=== PATIENT | female | born 1995 | race Caucasian/White ===

== ENCOUNTER 2016-09-04 08:47 | Emergency (ER) | payer OTHER, MEDICAID ==
[~2016-09-04] VITALS: Ht 160 cm; Wt 55.0 kg
--- NOTE | 2016-09-04 09:02 | PD ---
HPI Chief Complaint: psychiatric symptoms Time Seen by Provider: 09:02 Travel History International Travel<30 days: No Contact w/Intl Traveler<30days: No History of Present Illness HPI 20-year-old female presents to the emergency department under the Muhammad act via police for reported suicidal ideations. Suicidal ideations were reported by the patient's boyfriend and mother stated that she was suicidal and wanted to kill herself with a gun. No gun was found on the premises of the home. Patient is here for psychiatric evaluation. Patient denies any medical issues. She takes no medications. She is allergic to penicillin. [facility] Past Medical History Seizures: Yes Social History Alcohol Use: Yes Tobacco Use: Yes (12ppd) Substance Use: No Allergies-Medications (Allergen,Severity, Reaction): Coded Allergies: Penicillin (Verified Allergy, Severe, 03/05/16) Reported Meds & Prescriptions Reported Meds & Active Scripts Active No Active Prescriptions or Reported Medications Review of Systems Except as stated in HPI: all other systems reviewed are Neg General / Constitutional: No: Fever Eyes: No: Visual changes HENT: No: Headaches Cardiovascular: No: Chest Pain or Discomfort Respiratory: No: Shortness of Breath Gastrointestinal: No: Abdominal Pain Genitourinary: No: Dysuria Musculoskeletal: No: Pain Skin: No Rash Neurologic: No: Weakness Psychiatric: No: Depression Endocrine: No: Polydipsia Hematologic/Lymphatic: No: Easy Bruising Physical Exam Narrative GENERAL: Patient appears in no acute distress. SKIN: Warm and dry. Normal color. Normal turgor. No signs of trauma. HEAD: Atraumatic. Normocephalic. EYES: Pupils equal and round. No scleral icterus. No injection or drainage. ENT: No nasal bleeding or discharge. Mucous membranes pink and moist. NECK: Trachea midline. No JVD. CARDIOVASCULAR: Regular rate and rhythm. RESPIRATORY: No accessory muscle use. Clear to auscultation. Breath sounds equal bilaterally. MUSCULOSKELETAL: Extremities without clubbing, cyanosis, or edema. No obvious deformities. NEUROLOGICAL: Awake and alert. No obvious cranial nerve deficits. Motor grossly within normal limits. Five out of 5 muscle strength in the arms and legs. Normal speech. PSYCHIATRIC: Appropriate mood and affect; insight and judgment normal. Data Data Last Documented VS Vital Signs Date Time Temp Pulse Resp B/P Pulse Ox O2 Delivery O2 Flow Rate FiO2 09/04/16 09:17 88 18 09/04/16 09:04 98.6 125/75 97 Orders Complete Blood Count With Diff (09/04/16 09:03) Comprehensive Metabolic Panel (09/04/16 09:03) Psych Screen (09/04/16 09:03) Drug Screen, Random Urine (09/04/16 09:03) Ed Urine Pregnancytest Poc (09/04/16 09:06) Lorazepam (Ativan) (09/04/16 09:30) Acetaminophen (Tylenol) (09/04/16 09:30) Labs Laboratory Tests Test 09/04/16 09/04/16 09:14 09:32 White Blood Count 6.9 TH/MM3 Red Blood Count 4.25 MIL/MM3 Hemoglobin 13.5 GM/DL Hematocrit 38.6 % Mean Corpuscular Volume 90.8 FL Mean Corpuscular Hemoglobin 31.7 PG Mean Corpuscular Hemoglobin 35.0 % Concent Red Cell Distribution Width 12.6 % Platelet Count 230 TH/MM3 Mean Platelet Volume 7.7 FL Neutrophils (%) (Auto) 53.8 % Lymphocytes (%) (Auto) 37.3 % Monocytes (%) (Auto) 8.4 % Eosinophils (%) (Auto) 0.2 % Basophils (%) (Auto) 0.3 % Neutrophils # (Auto) 3.7 TH/MM3 Lymphocytes # (Auto) 2.6 TH/MM3 Monocytes # (Auto) 0.6 TH/MM3 Eosinophils # (Auto) 0.0 TH/MM3 Basophils # (Auto) 0.0 TH/MM3 CBC Comment DIFF FINAL Differential Comment Sodium Level 144 MEQ/L Potassium Level 3.3 MEQ/L Chloride Level 111 MEQ/L Carbon Dioxide Level 24.5 MEQ/L Anion Gap 9 MEQ/L Blood Urea Nitrogen 5 MG/DL Creatinine 0.66 MG/DL Estimat Glomerular Filtration 114 ML/MIN Rate Random Glucose 97 MG/DL Calcium Level 8.9 MG/DL Total Bilirubin 0.4 MG/DL Aspartate Amino Transf 14 U/L (AST/SGOT) Alanine Aminotransferase 19 U/L (ALT/SGPT) Alkaline Phosphatase 57 U/L Total Protein 7.7 GM/DL Albumin 4.3 GM/DL Urine Opiates Screen NEG Urine Barbiturates Screen NEG Urine Amphetamines Screen NEG Urine Benzodiazepines Screen NEG Urine Cocaine Screen POS Urine Cannabinoids Screen NEG MDM Medical Decision Making Medical Screen Exam Complete: Yes Emergency Medical Condition: Yes Differential Diagnosis Muhammad act. Suicidal ideation. Medical clearance for psychiatric evaluation. Narrative Course Patient is medically stable at time of exam. Psychiatric labs are ordered per protocol including urine test. Patient is cleared medically for psychiatric evaluation. Diagnosis Primary Impression: Medical clearance for psychiatric admission Scripts No Active Prescriptions or Reported Meds Condition: Stable Moses Thompson Sep 04, 2016 09:02
[2016-09-04 09:04] VITALS: BP 125/75; PULSE 88; RESP 18; TEMP 98.6; O2SAT 97
[2016-09-04 09:29] LABS: AUTOMATED NEUTROPHIL # 3.7 TH/MM3 (1.8-7.7); BASOPHIL % 0.3 % (0.0-2.0); EOSINOPHIL % 0.2 % (0.0-4.0); HEMATOCRIT 38.6 % (35.0-46.0); HEMO FLAGS DIFF FINAL; LYMPH % 37.3 % (9.0-44.0); LYMPHOCYTE # 2.6 TH/MM3 (1.0-4.8); MEAN CELL VOLUME 90.8 FL (80.0-100.0); MEAN CORPUSCULAR HEMOGLOBIN 31.7 PG (27.0-34.0); MONO % 8.4 % (0.0-8.0); NEUT % 53.8 % (16.0-70.0); PLATELET COUNT 230 TH/MM3 (150-450); RED BLOOD COUNT 4.25 MIL/MM3 (4.00-5.30); RED CELL DISTRIBUTION WIDTH 12.6 % (11.6-17.2); WHITE BLOOD COUNT 6.9 TH/MM3 (4.0-11.0)
[2016-09-04] MEDS ORDERED: LORazepam 0.5 MG TAB PO ONE ×2 (09:30→16:30)
[2016-09-04] MEDS ORDERED: ACETAMINOPHEN 325 MG TAB PO ONE (09:30)
[2016-09-04 09:49] LABS: ANION GAP 9 MEQ/L (5-15); AST (GOT) 14 U/L (16-38); BICARBONATE 24.5 MEQ/L (21.0-32.0); BLOOD UREA NITROGEN 5 MG/DL (7-18); CHLORIDE 111 MEQ/L (98-107); GLOMERULAR FILTRATION RATE 114 ML/MIN (>89); POTASSIUM 3.3 MEQ/L (3.5-5.1); SODIUM (NA) 144 MEQ/L (136-145)
[2016-09-04 09:50] LABS: ALT (GPT) 19 U/L (9-42)
[2016-09-04 09:52] LABS: ALKALINE PHOSPHATASE 57 U/L (45-117); TOTAL BILIRUBIN ADULT 0.4 MG/DL (0.2-1.0)
[2016-09-04 10:03] LABS: AMPHETAMINE, URINE NEG (NEG); BARBITURATES, URINE NEG (NEG); COCAINE, URINE POS (NEG)
[2016-09-04] MEDS ORDERED: IBUPROFEN 800 MG TAB PO ONE (14:45)
[2016-09-04] MEDS ORDERED: LORazepam 1 MG TAB PO ONE (15:00)
[2016-09-04 16:54] VITALS: BP 118/70; PULSE 82; RESP 18; O2SAT 100
[2016-09-05 02:27] VITALS: BP_SYST 91; PULSE 68; RESP 16; TEMP 98.1; O2SAT 98
[2016-09-05 06:38] VITALS: BP 96/54; PULSE 80; RESP 16; TEMP 98; O2SAT 98
[2016-09-05 06:40] VITALS: BP 103/69; PULSE 79; RESP 16; TEMP 97.8; O2SAT 98
[2016-09-05 06:49] VITALS: BP 103/69; PULSE 79; RESP 16; TEMP 97.8; O2SAT 98
[2016-09-05 10:27] VITALS: BP 109/55; PULSE 80; RESP 18; O2SAT 100
[2016-09-05 10:28] VITALS: BP 109/55; PULSE 80; RESP 18; O2SAT 100
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
== END 2016-09-05 12:25 | disposition home or self-care (01) ==
LOC: NEPD 08:47 → NEPJ 09-05 12:25
DX: F43.21 Adjustment disorder with depressed mood (principal); F14.90 Cocaine use, unspecified, uncomplicated
CPT/HCPCS: 80053; 80307; 84703; 85025; 99284

== ENCOUNTER → 2017-04-26 | Outpatient (CLI) | payer MEDICAID, OTHER ==
[2017-04-26 15:03] LABS: AUTOMATED NEUTROPHIL # 5.2 TH/MM3 (1.8-7.7); BASOPHIL % 0.2 % (0.0-2.0); EOSINOPHIL % 0.1 % (0.0-4.0); HEMATOCRIT 36.5 % (35.0-46.0); HEMOGLOBIN 12.9 GM/DL (11.6-15.3); LYMPH % 16.8 % (9.0-44.0); LYMPHOCYTE # 1.1 TH/MM3 (1.0-4.8); MEAN CELL VOLUME 92.1 FL (80.0-100.0); MEAN CORPUSCULAR HEMOGLOBIN 32.6 PG (27.0-34.0); MEAN CORPUSCULAR HGB CONC 35.3 % (32.0-36.0); MONO % 6.5 % (0.0-8.0); MONOCYTE # 0.4 TH/MM3 (0-0.9); NEUT % 76.4 % (16.0-70.0); PLATELET COUNT 213 TH/MM3 (150-450); RED BLOOD COUNT 3.96 MIL/MM3 (4.00-5.30); RED CELL DISTRIBUTION WIDTH 12.6 % (11.6-17.2); WHITE BLOOD COUNT 6.8 TH/MM3 (4.0-11.0)
[2017-04-27 10:05] LABS: HEPATITIS B SURFACE ANTIGEN NEGATIVE (NEGATIVE)
== END ==
LOC: ELAB 11:32
PROVIDERS: ATTEND Advanced Practice Midwife
DX: Z33.1 Pregnant state, incidental (principal)
CPT/HCPCS: 36415; 84443; 85025; 86592; 86703; 86762; 86787; 86850; 86900; 86901; 87340

== ENCOUNTER → 2017-06-14 | Outpatient (CLI) | payer MEDICAID | LOC: HPND 10:39 | PROVIDERS: ATTEND Obstetrics & Gynecology | DX: O99.352 Diseases of the nervous system complicating pregnancy, second trimester (principal) | CPT/HCPCS: 76805 ==

== ENCOUNTER 2017-11-09 07:48 | Inpatient (IN) ==
[2017-11-09] MEDS ORDERED: Oxytocin 30 Units/500ml Premix 30 UNITS/500 ML BAG IV.SIG ONE (08:05)
[2017-11-09] MEDS ORDERED: Naloxone Inj 0.4 MG/ML Vial IV.PUSH PRN ×2 (08:05→15:49)
[2017-11-09] MEDS ORDERED: Sod Chloride 0.9% Inj 1,000 ML IV.CONT PRN (08:05)
[2017-11-09] MEDS ORDERED: fentaNYL Citrate Inj 100 MCG/2 ML Ampul IV.PUSH PRN ×2 (08:05)
[2017-11-09] MEDS ORDERED: Sodium Chlor 0.9% Inj 500 ML IV.SIG PRN (08:05)
[2017-11-09] MEDS ORDERED: Citric Acid/Sodium Citrate Liq 30 ML UDC PO SCH (08:15)
--- NOTE | 2017-11-09 08:15 | P.HPOB ---
History of Present Illness Primary Care Physician: MD Kassi Lee Chief Complaint: Water broke and contractions started History of Present Illness: Patient is 22-year-old white female at 39-1/2 weeks who seen Kassi Snyder for care and presents today with spontaneous rupture membranes and early labor. Patient denies bleeding. heart rate is reactive and she is jn regularly and it examined OB ED she is grossly ruptured membranes Weeks Gestation:: 39 Para: 0 : 1 Review of Systems Constitutional: Denies anorexia, Denies body ache(s), Denies chills, Denies daytime sleepiness, Denies excessive sweating, Denies fatigue, Denies fever(s), Denies headache(s), Denies increased appetite, Denies lack of energy, Denies malaise, Denies night sweats, Denies weakness, Denies weight gain, Denies weight loss, Denies other Cardiovascular: Denies bluish discoloration of hand/feet, Denies chest pain, Denies chest pain at rest, Denies chest pain with activity, Denies excessive sweating, Denies fainting, Denies fast heart rate, Denies foot swelling, Denies generalized swelling, Denies irregular heart rhythm, Denies leg pain with activity, Denies leg sores, Denies leg swelling, Denies lightheadedness, Denies radiating jaw, neck or arm pain, Denies rapid, pounding, or irregular heartbeat , Denies shortness of breath, Denies shortness of breath with activity, Denies shortness of breath when lying down, Denies shortness of breath causing sudden awakening, Denies slow heart rate, Denies other Respiratory: Denies change in phlegm color, Denies chest congestion, Denies cough, Denies coughing up blood, Denies excessive phlegm production, Denies pain on inspiration, Denies pain with cough, Denies shortness of breath, Denies shortness of breath with activity, Denies snoring, Denies stridor, Denies wheezing, Denies other Gastrointestinal: Reports abdominal pain, Denies belching, Denies black, tarry stools, Denies bloating, Denies bright, red blood in stools, Denies change in bowel habits, Denies constant urge to pass stool, Denies change in stools, Denies coffee ground vomit, Denies constipation, Denies cramping, Denies difficulty swallowing, Denies excessive passing of gas, Denies feeling full early, Denies heartburn, Denies incontinent of stools, Denies loose stools, Denies nausea, Denies pain with swallowing, Denies vomiting, Denies vomiting blood, Denies other Genitourinary: Reports vaginal discharge, Denies abnormal periods, Denies abnormal vaginal bleeding, Denies absent period, Denies bleeding between periods , Denies blood in urine, Denies difficulty starting urination, Denies difficulty urinating, Denies dribbling after urination, Denies frequent nighttime urination, Denies genital itching, Denies genital lesions, Denies heavy periods, Denies hot flashes, Denies light periods, Denies nipple discharge , Denies painful intercourse, Denies painful periods, Denies painful urination, Denies pelvic pain, Denies prolapse symptoms, Denies sexual problems, Denies side pain, Denies urinary incontinence, Denies urinary urgency, Denies vaginal dryness, Denies vaginal odor, Denies vaginal itching, Denies other Neurologic: Denies abnormal hearing, Denies abnormal movements, Denies abnormal speech, Denies abnormal walking, Denies behavioral changes, Denies burning sensations, Denies confusion, Denies dizziness, Denies fainting, Denies frequent falls, Denies headache(s), Denies lack of coordination, Denies localized weakness, Denies loss of vision, Denies memory loss, Denies numbness, Denies other visual disturbances, Denies radiating pain, Denies restless legs, Denies convulsions, Denies seizure-like activity, Denies sensory deficit, Denies tingling, Denies tingling/numbness/burning sensations, Denies tremor(s), Denies unsteadiness, Denies weakness, Denies other PMFSH - History History Provided By: Patient - Medical History Medical History: Medical History (Last Updated 10/27/17 @ 07:28 by Shell Matthews) History of epilepsy No significant past surgical history - Tobacco History Second Hand Smoke Exposure: No Smoking Status: Never smoker - Alcohol History How Often Do You Have a Drink Containing Alcohol: Never - Substance Use History Substance History: No History of Abuse - Travel History History of Recent Travel: No Recent Travel in the [facility] Within the Last 8 Weeks: No Recent Travel Out of the Country Within the Last 8 Weeks: No Medications and Allergies Active Medications: Active Medications Citric Acid/Sodium Citrate (Sodium Citrate/Citric Acid Liq) 30 ml PO [employer]INT[employer] MACHIN[employer] [facility] Stop: 11/13/17 08:14 Fentanyl Citrate (Fentanyl Inj) 50 mcg IV.PUSH Q1H PRN PRN Reason: Pain Scale 3 - 5 Fentanyl Citrate (Fentanyl Inj) 100 mcg IV.PUSH Q1H PRN PRN Reason: PAIN SCALE 6 TO 10 Clindamycin/Sodium Chloride (Cleocin 900 Mg/Ns Premix) 900 mg in 50 mls @ 100 mls/hr IV.SIG Q8H [place] Lactated Ringer's (Lr 1000 Ml Inj) 1,000 mls @ 3,000 mls/hr IV.SIG UNSCH PRN PRN Reason: compromise or epidural Sodium Chloride (Ns Inj) 500 mls @ 1,000 mls/hr IV.SIG UNSCH PRN PRN Reason: SEE LABEL COMMENTS Sodium Chloride (Ns Inj) 1,000 mls @ 100 mls/hr IV.CONT .Q10H PRN PRN Reason: SEE LABEL COMMENTS Oxytocin (Pitocin 30 Units/Ns 500 Ml Premix) 30 units in 500 mls @ 999 mls/hr IV.SIG BOLUS ONE Stop: 11/09/17 08:35 Lactated Ringer's (Lr 1000 Ml Inj) 1,000 mls @ 125 mls/hr IV.CONT .Q8H [facility] Lidocaine HCl (Xylocaine 1% Inj) 0.1 ml I-DERMAL PRN PRN PRN Reason: For IV start Stop: 11/12/17 08:04 Lidocaine HCl (Xylocaine 1% Inj) 10 ml INFILTRATN PRN PRN PRN Reason: For episiotomy repair Stop: 11/11/17 08:04 Mineral Oil (Muri-Lube Oil) 10 ml TOPICAL PRN PRN PRN Reason: PRN perineal massage Naloxone HCl (Narcan Inj) 0.1 mg IV.PUSH Q2M PRN PRN Reason: for opiate reversal Ondansetron HCl (Zofran Inj) 4 mg IV.PUSH Q6H PRN PRN Reason: NAUSEA OR VOMITING Allergies Allergy/AdvReac Type Severity Reaction Status Date / Time penicillin G Allergy Severe Hives Verified 10/27/17 07:26 Home Medications Medication Instructions Recorded Confirmed Type No Known Home Medications 10/27/17 10/27/17 History Exam - Constitutional moderate distress - Routine HEENT Exam Head: Present: normocephalic, atraumatic Eye: Present: PERRL - Routine Respiratory Exam Present: CTA bilaterally - Routine Cardiovascular Exam Present: RRR - Routine Abdominal Exam Present: soft - Routine Exam Comments: Cervix is 3 cm/90/-1/cephalic with gross leakage of amniotic fluid on exam - Routine Neurological Exam Present: alert, oriented X3, CN II-XII intact Results - Labs Group B Strep: Positive Caprini VTE Risk Assessment Caprini VTE Risk Assessment: No/Low Risk (score <= 1) Caprini Risk Assessment Model: Point Value = 1 Point Value = 2 Point Value = 3 Point Value = 5 Age 41-60 Minor surgery BMI > 25 kg/m2 Swollen legs Varicose veins or History of unexplained or recurrent spontaneous Oral contraceptives or hormone replacement Sepsis (< 1 month) Serious lung disease, including pneumonia (< 1 month) Abnormal pulmonary function Acute myocardial infarction Congestive heart failure (< 1 month) History of inflammatory bowel disease Medical patient at bed rest Age 61-74 Arthroscopic surgery Major open surgery (> 45 min) Laparoscopic surgery (> 45 min) Malignancy Confined to bed (> 72 hours) Immobilizing plaster cast Central venous access Age >= 75 History of VTE Family history of VTE Factor V Leiden Prothrombin [id number] Lupus anticoagulant Anticardiolipin antibodies Elevated serum homocysteine Heparin-induced thrombocytopenia Other congenital or acquired thrombophilia Stroke (< 1 month) Elective arthroplasty Hip, pelvis, or leg fracture Acute spinal cord injury (< 1 month) Prophylaxis Regimen: Total Risk Factor Score Risk Level Prophylaxis Regimen 0-1 Low Early ambulation 2 Moderate Order ONE of the following: *Sequential Compression Device (SCD) *Heparin 5000 units SQ BID 3-4 Higher Order ONE of the following medications: *Heparin 5000 units SQ TID *Enoxaparin/Lovenox 40 mg SQ daily (WT < 150 kg, CrCl > 30 mL/min) *Enoxaparin/Lovenox 30 mg SQ daily (WT < 150 kg, CrCl > 10-29 mL/min) *Enoxaparin/Lovenox 30 mg SQ BID (WT < 150 kg, CrCl > 30 mL/min) AND/OR *Sequential Compression Device (SCD) 5 or more Highest Order ONE of the following medications: *Heparin 5000 units SQ TID (Preferred with Epidurals) *Enoxaparin/Lovenox 40 mg SQ daily (WT < 150 kg, CrCl > 30 mL/min) *Enoxaparin/Lovenox 30 mg SQ daily (WT < 150 kg, CrCl > 10-29 mL/min) *Enoxaparin/Lovenox 30 mg SQ BID (WT < 150 kg, CrCl > 30 mL/min) AND *Sequential Compression Device (SCD) Assessment and Plan - Diagnosis (1) Amniotic fluid leaking Code(s): O42.90 - Premature rupture of membranes, unspecified as to length of time between rupture and onset of labor, unspecified weeks of gestation Status : Acute (2) Uterine contractions during Code(s): O62.2 - Other uterine inertia Status: Acute (3) 39 weeks gestation of Code(s): Z3A.39 - 39 weeks gestation of Status: Acute - Plan This primiparous patients at 39 weeks with grossly ruptured membranes in early labor, cervix is 3/90/-1/cephalic. Plan for her to be admitted labor and delivery, augment labor as needed, epidural anesthesia, GBS prophylaxis antibiotics and anticipate vaginal delivery today
[2017-11-09] MEDS ORDERED: fentaNYL 2MCG-Bupiv 0.125% Epi 150 ML EPIDURAL ONE (08:51)
[2017-11-09] MEDS ORDERED: Clindamycin 900 mg/NS Premix 900 MG/50 ML PIGGYBACK IV.SIG SCH ×2 (09:00→10:06)
[2017-11-09 09:06] LABS: Baso % (Auto) 0.4 % (0.0-2.0); Eos # (Auto) 0.1 th/mm3 (0.0-0.4); Eos % (Auto) 0.6 % (0.0-4.0); Hematocrit 34.2 % (35.0-46.0); Hemoglobin 11.7 gm/dL (11.6-15.3); Lymph % (Auto) 19.5 % (9.0-44.0); Mean Corpuscular HGB Conc 34.2 % (32.0-36.0); Mean Corpuscular Hemoglobin 31.6 pg (27.0-34.0); Mean Corpuscular Volume 92.5 fL (80.0-100.0); Mean Platelet Volume 8.5 fL (7.0-11.0); Mono # (Auto) 1.1 th/mm3 (0.0-0.9); Neut # (Auto) 6.9 th/mm3 (1.8-7.7); Neut % (Auto) 68.5 % (16.0-70.0); Platelet Count 184 th/mm3 (150-450); Red Cell Distribution Width 13.1 % (11.6-17.2)
[2017-11-09 09:44] LABS: Eosinophils 1 % (0-4); Lymphocytes 15 % (9-44); Monocytes 4 % (0-8); Myelocytes 2 % (0-0); Platelet Estimate Normal (Normal); Platelet Morphology Normal (Normal)
[2017-11-09 09:45] LABS: RBC Morphology Normal (Normal)
[2017-11-09] MEDS ORDERED: Lidocaaine 1.5%/Epinephrine 1:200,000 PF Inj 5 ML Amp ONE (09:55)
[2017-11-09] MEDS ORDERED: Lidocaine PF 1% Inj 5 ML Vial ONE (09:56)
[2017-11-09] MEDS ORDERED: Oxytocin 30 Units/500ml Premix 30 UNITS/500 ML BAG IV.SIG PRN (10:41)
--- NOTE | 2017-11-09 10:54 | P.OBLABOR ---
Subjective Interval history: Patient seen at bedside s/p epidural. Doing well. Resting Comfortably. Not feeling contractions currently but some pressure in the pelvic area. Objective Vital Signs: Vital Signs - 8 hr 11/09/17 08:35 11/09/17 09:06 11/09/17 09:15 Temperature 98.5 F Pulse Rate 81 88 98 H Respiratory Rate 20 Blood Pressure 119/62 132/86 11/09/17 09:46 11/09/17 09:55 11/09/17 10:00 Temperature Pulse Rate 109 H 88 85 Respiratory Rate Blood Pressure 122/77 121/77 116/73 11/09/17 10:02 11/09/17 10:06 11/09/17 10:09 Temperature Pulse Rate 80 87 Respiratory Rate 18 Blood Pressure 114/75 120/73 11/09/17 10:15 11/09/17 10:18 11/09/17 10:25 Temperature Pulse Rate 111 H 93 H Respiratory Rate Blood Pressure 126/76 140/79 109/67 11/09/17 10:27 Temperature Pulse Rate 119 H Respiratory Rate Blood Pressure 100/81 Objective: Pelvic Exam per nursing: Cervix: posterior Dilatation: 4cm Effacement: [90%] Station: [-1] Presentation: cephalic Membranes: ruptured Uterine Contractions: q5 mins FHT's: Category: 1 Baseline: 135 bmp Reactive: yes Variability: moderate Decels: no Assessment and Plan - Plan 22 year old female who presents at 39 weeks with +SROM in early labor. No complications with this . heart tracings category 1 reassuring. GBS positive. -epidural anesthesia given. -Cervical check 4cm/90/-1 per nursing. -contractions every 5 minutes. -EFM/[place] -Administer oxytocin 2-2-30. At 2 units. -GBS prophylaxis antibiotics q 4.
[2017-11-09] MEDS ORDERED: fentaNYL 2MCG-Bupiv 0.125% Epi 150 ML EPIDURAL PRN (11:38)
[2017-11-09] MEDS ORDERED: fentaNYL Citrate Inj 100 MCG/2 ML Ampul EPIDURAL ONE (11:38)
[2017-11-09 11:45] LABS: Amphetamine Urine With Conf Neg (Neg); Benzodiazepine Urine With Conf Neg (Neg)
[2017-11-09 11:49] LABS: Bacteria,Urine Rare /hpf; Bilirubin,Urine Negative (Negative); Clarity,Urine Clear (Clear); Color,Urine Yellow (Yellw/Straw); Glucose,Urine (UA) Negative (Negative); Leukocyte Esterase,Urine Negative (Negative); Mucus,Urine Few /lpf (Occasional); Nitrite,Urine Negative (Negative); Specific Gravity,Urine 1.014 (1.002-1.035)
[2017-11-09] MEDS ORDERED: Lidocaine PF 1% Inj 10 ML Amp ONE (13:22)
[2017-11-09] MEDS ORDERED: fentaNYL Citrate Inj 100 MCG/2 ML Ampul ONE (13:22)
--- NOTE | 2017-11-09 14:38 | P.OBLABOR ---
Subjective Interval history: Patient seen at bedside. Feels nauseous. Otherwise not feeling contractions. Denies any pain. Shivering but denies feeling cold. Objective Vital Signs: Vital Signs - 8 hr 11/09/17 08:35 11/09/17 09:06 11/09/17 09:15 Temperature 98.5 F Pulse Rate 81 88 98 H Respiratory Rate 20 Blood Pressure 119/62 132/86 11/09/17 09:46 11/09/17 09:55 11/09/17 10:00 Temperature Pulse Rate 109 H 88 85 Respiratory Rate Blood Pressure 122/77 121/77 116/73 11/09/17 10:02 11/09/17 10:06 11/09/17 10:09 Temperature Pulse Rate 80 87 Respiratory Rate 18 Blood Pressure 114/75 120/73 11/09/17 10:15 11/09/17 10:18 11/09/17 10:25 Temperature Pulse Rate 111 H 93 H Respiratory Rate Blood Pressure 126/76 140/79 109/67 11/09/17 10:27 11/09/17 10:40 11/09/17 10:50 Temperature Pulse Rate 119 H 92 H 95 H Respiratory Rate Blood Pressure 100/81 105/66 114/73 11/09/17 11:20 11/09/17 12:00 11/09/17 12:15 Temperature Pulse Rate 85 95 H 88 Respiratory Rate Blood Pressure 106/62 94/57 L 102/68 11/09/17 12:25 11/09/17 13:11 11/09/17 13:30 Temperature 98.7 F Pulse Rate 103 H 96 H Respiratory Rate 18 Blood Pressure 116/77 Objective: Pelvic Exam: Cervix: anterior Dilatation: 10 Effacement: 100 Station: 1 Presentation: cephalic Membranes: ruptured Contractions: q 2 mins FHT's: Category: 2 Baseline: 140s Reactive: yes Variability: moderate Decels: variable and late Assessment and Plan - Plan 22 year old female who presents at 39 weeks with +SROM in early labor. No complications with this . heart tracings category 2. GBS positive. -epidural anesthesia given. -Cervical check 10/100/+1 -contractions every 2 minutes. -Administer oxytocin 2-2-30. Increased from 2 to 7 units. -GBS prophylaxis antibiotics q 4. -Anticipate Labor in a couple hours.
[2017-11-09] MEDS ORDERED: Bisacodyl 10 MG Supp RECTAL PRN (15:49)
[2017-11-09] MEDS ORDERED: Witch Hazel 50%/Glyderin 12.5% 40 Pad Jar RECTAL PRN (15:49)
[2017-11-09] MEDS ORDERED: Zolpidem Tartrate 5 MG Tablet PO PRN (15:49)
[2017-11-09] MEDS ORDERED: Benzocaine 20% Top Spray 60 ML Can TOPICAL PRN (15:49)
[2017-11-09] MEDS ORDERED: Oxytocin 30 Units/500ml Premix 30 UNITS/500 ML BAG IV.CONT PRN (15:49)
[2017-11-09 15:53] LABS: Cord Arterial Blood HCO3 23.9
--- NOTE | 2017-11-09 15:54 | P.OBDELI ---
Weeks Gestation: 39 Artificial Rupture of Membrane: No Anesthesia: None Episiotomy: none Vaginal Delivery: Normal Presentation: Occiput anterior Nuchal Cord: None Delayed Cord Clamping (45 sec): Yes Shoulder Dystocia: Suprapubic pressure given, Kosta maneuver done (A shoulder dystocia was identified and the clock was started. McRobert's and suprapubic were given and the mother was asked to stop pushing during this time. With gentle traction, the anterior (L) shoulder was delivered atraumatically. Total time was 40 seconds. ) Placenta: Spontaneous delivery Laceration: Vaginal (b/l labials repaired with 2 runs of 4-0 vicryl each. ) Repair: Vicryl running Estimated blood loss (mL): 200 : Male Infant Male A Delivery Date: 11/09/17 Delivery Time: 15:32 Weight: 4385 kg score (1 min): 8 (infant on maternal chest) score (5 min): 7 (4 minutes of CPAP administered starting at 4 minutes)
[2017-11-09] MEDS ORDERED: Diphtheria/Tetanus/Pertussis Vaccine Inj 0.5 ML Syringe IM ONE (16:00)
[2017-11-09] MEDS ORDERED: Measles/Mumps/Rubella Vaccine Inj 0.5 ML Vial SQ ONE (16:00)
[2017-11-09] MEDS: Acetaminophen 325 MG Tablet PO PRN (18:14)
[2017-11-10] MEDS: Senna/Docusate Sodium 8.6/50 MG Tablet PO SCH ×2 (07:59→23:19)
[2017-11-10] MEDS: Acetaminophen 325 MG Tablet PO PRN ×4 (07:59→23:14)
--- NOTE | 2017-11-10 08:55 | P.PNOB ---
Subjective Interval history: Patient seen and examined at bedside this morning. She is a 22 year-old delivered at 39 weeks and 0 days. Patient is day 1 after . AFVSS. Patient's pain is complaining of back pain this morning that feels like menstrual cramps, has only received one dose of Moltrin overnight. Patient reports eating and drinking without any nausea or vomiting. Patient reports minimal bleeding. Patient has not passed gas and has had no bowel movements. Patient is walking without lower extremity pain or shortness of breath. Patient reports desire for contraception (OCPS) and is breast-feeding. Objective Vital Signs/I&O: Vital Signs 11/09/17 09:06 11/09/17 09:15 11/09/17 09:46 Temperature 98.5 F Pulse Rate 88 98 H 109 H Respiratory Rate 20 Blood Pressure 119/62 132/86 122/77 11/09/17 09:55 11/09/17 10:00 11/09/17 10:02 Temperature Pulse Rate 88 85 Respiratory Rate 18 Blood Pressure 121/77 116/73 11/09/17 10:06 11/09/17 10:09 11/09/17 10:15 Temperature Pulse Rate 80 87 111 H Respiratory Rate Blood Pressure 114/75 120/73 126/76 11/09/17 10:18 11/09/17 10:25 11/09/17 10:27 Temperature Pulse Rate 93 H 119 H Respiratory Rate Blood Pressure 140/79 109/67 100/81 11/09/17 10:40 11/09/17 10:50 11/09/17 11:20 Temperature Pulse Rate 92 H 95 H 85 Respiratory Rate Blood Pressure 105/66 114/73 106/62 11/09/17 12:00 11/09/17 12:15 11/09/17 12:25 Temperature Pulse Rate 95 H 88 103 H Respiratory Rate Blood Pressure 94/57 L 102/68 11/09/17 13:11 11/09/17 13:30 11/09/17 14:10 Temperature 98.7 F Pulse Rate 96 H 95 H Respiratory Rate 18 Blood Pressure 116/77 108/60 11/09/17 15:01 11/09/17 15:45 11/09/17 15:57 Temperature 98.2 F Pulse Rate 105 H 99 H Respiratory Rate 18 Blood Pressure 146/61 H 124/66 11/09/17 16:23 11/09/17 17:10 11/09/17 18:30 Temperature 98.5 F Pulse Rate 94 H 102 H 80 Respiratory Rate 18 Blood Pressure 127/76 124/73 106/73 11/09/17 20:00 11/10/17 07:58 Temperature 98.3 F 97.6 F Pulse Rate 65 64 Respiratory Rate 18 20 Blood Pressure 124/76 113/64 Intake & Output 11/09/17 11/10/17 11/10/17 18:59 06:59 18:59 Intake Total 1000 / 1000 Balance 1000 / 1000 Weight 77.111 kg Intake: IV 1000 / 1000 LR 1000 mL Inj 1,000 ML @ 125 1000 / 1000 mls/hr IV.CONT .Q8H [facility] Rx#: [id number] Other: Weight On Admission 77.111 kg Result Diagrams: 11/09/17 08:30 Objective Remarks: GENERAL: Well-nourished, well-developed patient. CARDIOVASCULAR: Regular rate and rhythm without murmurs, gallops, or rubs. RESPIRATORY: Breath sounds equal bilaterally. No accessory muscle use. ABDOMEN/GI: Abdomen soft, non-tender. Fundus: Firm, non-tender at umbilicus. GENITOURINARY: Light to moderate bleeding. EXTREMITIES: No cyanosis or edema, non-tender, without signs of DVT. Medications and IVs: Active Medications Acetaminophen (Tylenol) 650 mg PO Q4H PRN PRN Reason: PAIN SCALE 1 TO 2 Last Admin: 11/10/17 07:59 Dose: 650 mg Al Hydroxide/Mg Hydroxide (Milk Of Magnesia Liq) 30 ml PO Q12H PRN PRN Reason: Mild Constipation Benzocaine (Americaine 20% Top [place]) 1 spray TOPICAL Q4H PRN PRN Reason: For Perineum Discomfort Last Admin: 11/10/17 01:25 Dose: 1 spray Bisacodyl (Dulcolax Supp) 10 mg RECTAL DAILY PRN PRN Reason: SEVERE CONSITIPATION Citric Acid/Sodium Citrate (Sodium Citrate/Citric Acid Liq) 30 ml PO [employer] [facility] Stop: 11/13/17 08:14 Ephedrine Sulfate (Ephedrine/Ns Syringe) 10 mg IV.PUSH UNSCH PRN PRN Reason: SEE LABEL COMMENTS Stop: 11/10/17 11:39 Fentanyl Citrate (Fentanyl Inj) 50 mcg IV.PUSH Q1H PRN PRN Reason: Pain Scale 3 - 5 Fentanyl Citrate (Fentanyl Inj) 100 mcg IV.PUSH Q1H PRN PRN Reason: PAIN SCALE 6 TO 10 Last Admin: 11/09/17 09:20 Dose: 100 mcg Lactated Ringer's (Lr 1000 Ml Inj) 1,000 mls @ 3,000 mls/hr IV.SIG UNSCH PRN PRN Reason: compromise or epidural Sodium Chloride (Ns Inj) 500 mls @ 1,000 mls/hr IV.SIG UNSCH PRN PRN Reason: SEE LABEL COMMENTS Sodium Chloride (Ns Inj) 1,000 mls @ 100 mls/hr IV.CONT .Q10H PRN PRN Reason: SEE LABEL COMMENTS Lactated Ringer's (Lr 1000 Ml Inj) 1,000 mls @ 125 mls/hr IV.CONT .Q8H [facility] Last Admin: 11/09/17 13:27 Dose: 125 mls/hr Clindamycin/Sodium Chloride (Cleocin 900 Mg/Ns Premix) 900 mg in 50 mls @ 100 mls/hr IV.SIG Q8H [facility] Last Admin: 11/09/17 09:21 Dose: 100 mls/hr Oxytocin (Pitocin 30 Units/Ns 500 Ml Premix) 30 units in 500 mls @ 2 mls/hr IV.SIG TITRATE PRN; Protocol PRN Reason: For induction of labor Last Admin: 11/09/17 10:50 Dose: 2 milliunit/min, 2 mls/hr Fentanyl/Bupivacaine/Sodium Chlor (Fentanyl 2 Mcg-Bupiv 0.125% Epi) 150 mls @ 12 mls/hr EPIDURAL PRN PRN PRN Reason: for Labor Pain Oxytocin (Pitocin 30 Units/Ns 500 Ml Premix) 30 units in 500 mls @ 100 mls/hr IV.CONT UNSCH PRN PRN Reason: Heavy bleeding Ibuprofen (Motrin) 800 mg PO Q8H PRN PRN Reason: For Cramping Last Admin: 11/10/17 01:48 Dose: 800 mg Lactulose (Lactulose Liq) 30 ml PO DAILY PRN PRN Reason: SEVERE CONSITIPATION Lidocaine HCl (Xylocaine 1% Inj) 0.1 ml I-DERMAL PRN PRN PRN Reason: For IV start Stop: 11/12/17 08:04 Lidocaine HCl (Xylocaine 1% Inj) 10 ml INFILTRATN PRN PRN PRN Reason: For episiotomy repair Stop: 11/11/17 08:04 Mineral Oil (Muri-Lube Oil) 10 ml TOPICAL PRN PRN PRN Reason: PRN perineal massage Miscellaneous Information (Misc Information) 1 each OTHER UNSCH PRN PRN Reason: SEE LABEL COMMENTS Stop: 11/10/17 11:39 Miscellaneous Information (Misc Information) 1 each OTHER UNSCH PRN PRN Reason: SEE LABEL COMMENTS Stop: 11/10/17 11:39 Naloxone HCl (Narcan Inj) 0.1 mg IV.PUSH Q2M PRN PRN Reason: for opiate reversal Naloxone HCl (Narcan Inj) 0.1 mg IV.PUSH Q2M PRN PRN Reason: for opiate reversal Ondansetron HCl (Zofran Inj) 4 mg IV.PUSH Q6H PRN PRN Reason: NAUSEA OR VOMITING Ondansetron HCl (Zofran Odt) 4 mg PO Q6H PRN PRN Reason: NAUSEA OR VOMITING Vit/Calcium/Iron/Folic Ac (Stuartnatal Plus 3) 1 tab PO DAILY [facility] Last Admin: 11/10/17 07:59 Dose: 1 tab Senna/Docusate Sodium (Kierra-Colace) 1 tab PO BID [facility] Last Admin: 11/10/17 07:59 Dose: 1 tab Sennosides (Senokot) 17.2 mg PO Q12H PRN PRN Reason: Moderate Constipation Sodium Chloride (Ns Flush) 2 ml IV.FLUSH BID [facility] Sodium Chloride (Ns Flush) 2 ml IV.FLUSH PRN PRN PRN Reason: FLUSH AFTER USING IV ACCESS Witch Shagufta/Glycerin (Tucks Pads) 1 applicatio RECTAL QID PRN PRN Reason: HEMORRHOIDS Last Admin: 11/10/17 01:25 Dose: 1 applicatio Zolpidem Tartrate (Ambien) 5 mg PO HS PRN PRN Reason: SLEEP Last Admin: 11/10/17 01:25 Dose: 5 mg Assessment and Plan - Plan 22 year old female who delivered at 39 weeks. Patient is day 1 after . Continue routine care. Motrin and Percocet when necessary for pain. Encourage OOB Pelvic rest for 6 weeks will need follow-up appointment at that time. Contraception: OCPs appropriately. Anticipate discharge tomorrow Discussed with Dr. Santiago.
[2017-11-10] MEDS ORDERED: Prenatal Vit/Ca/Iron/Folic Acid Tablet PO SCH (09:00)
[2017-11-11] MEDS: Acetaminophen 325 MG Tablet PO PRN (07:08)
--- NOTE | 2017-11-11 07:53 | P.PNOB ---
Subjective Post day: 2 Interval history: Patient is a 22-year-old delivered at 39 weeks and 4 days. Patient is day 2 after vaginal delivery. Patient's pain is well-controlled. Patient reports minimal bleeding. Patient reports eating and drinking without any nausea or vomiting. Patient has passed gas and has had a bowel movement. Patient denies chest pain and shortness of breath. Patient has been ambulating; she denies lower extremity pain. Patient reports desire for contraception, which she will discuss with her PCP at her first follow-up visit. Patient has decided to breast and bottle-feed. Objective Vital Signs/I&O: Vital Signs 11/10/17 07:58 11/10/17 19:50 11/11/17 00:48 Temperature 97.6 F 97.8 F Pulse Rate 64 72 Respiratory Rate 20 20 18 Blood Pressure 113/64 122/79 11/11/17 07:33 11/11/17 07:34 Temperature 98.1 F Pulse Rate 58 L Respiratory Rate 20 Blood Pressure 123/67 Result Diagrams: 11/09/17 08:30 Objective Remarks: GENERAL: Well-nourished, well-developed patient. CARDIOVASCULAR: Regular rate and rhythm without murmurs, gallops, or rubs. RESPIRATORY: Breath sounds equal bilaterally. No accessory muscle use. ABDOMEN/GI: Abdomen soft, non-tender. Fundus: Firm, non-tender at umbilicus. GENITOURINARY: Light to moderate bleeding. EXTREMITIES: No cyanosis or edema, non-tender, without signs of DVT. Medications and IVs: Active Medications Acetaminophen (Tylenol) 650 mg PO Q4H PRN PRN Reason: PAIN SCALE 1 TO 2 Last Admin: 11/11/17 07:08 Dose: 650 mg Al Hydroxide/Mg Hydroxide (Milk Of Magnesia Liq) 30 ml PO Q12H PRN PRN Reason: Mild Constipation Benzocaine (Americaine 20% Top [place]) 1 spray TOPICAL Q4H PRN PRN Reason: For Perineum Discomfort Last Admin: 11/10/17 01:25 Dose: 1 spray Bisacodyl (Dulcolax Supp) 10 mg RECTAL DAILY PRN PRN Reason: SEVERE CONSITIPATION Citric Acid/Sodium Citrate (Sodium Citrate/Citric Acid Liq) 30 ml PO [employer] [facility] Stop: 11/13/17 08:14 Fentanyl Citrate (Fentanyl Inj) 50 mcg IV.PUSH Q1H PRN PRN Reason: Pain Scale 3 - 5 Fentanyl Citrate (Fentanyl Inj) 100 mcg IV.PUSH Q1H PRN PRN Reason: PAIN SCALE 6 TO 10 Last Admin: 11/09/17 09:20 Dose: 100 mcg Lactated Ringer's (Lr 1000 Ml Inj) 1,000 mls @ 3,000 mls/hr IV.SIG UNSCH PRN PRN Reason: compromise or epidural Sodium Chloride (Ns Inj) 500 mls @ 1,000 mls/hr IV.SIG UNSCH PRN PRN Reason: SEE LABEL COMMENTS Sodium Chloride (Ns Inj) 1,000 mls @ 100 mls/hr IV.CONT .Q10H PRN PRN Reason: SEE LABEL COMMENTS Lactated Ringer's (Lr 1000 Ml Inj) 1,000 mls @ 125 mls/hr IV.CONT .Q8H [facility] Last Admin: 11/09/17 13:27 Dose: 125 mls/hr Clindamycin/Sodium Chloride (Cleocin 900 Mg/Ns Premix) 900 mg in 50 mls @ 100 mls/hr IV.SIG Q8H [facility] Last Admin: 11/09/17 09:21 Dose: 100 mls/hr Oxytocin (Pitocin 30 Units/Ns 500 Ml Premix) 30 units in 500 mls @ 2 mls/hr IV.SIG TITRATE PRN; Protocol PRN Reason: For induction of labor Last Admin: 11/09/17 10:50 Dose: 2 milliunit/min, 2 mls/hr Fentanyl/Bupivacaine/Sodium Chlor (Fentanyl 2 Mcg-Bupiv 0.125% Epi) 150 mls @ 12 mls/hr EPIDURAL PRN PRN PRN Reason: for Labor Pain Oxytocin (Pitocin 30 Units/Ns 500 Ml Premix) 30 units in 500 mls @ 100 mls/hr IV.CONT UNSCH PRN PRN Reason: Heavy bleeding Ibuprofen (Motrin) 800 mg PO Q8H PRN PRN Reason: For Cramping Last Admin: 11/11/17 07:07 Dose: 800 mg Lactulose (Lactulose Liq) 30 ml PO DAILY PRN PRN Reason: SEVERE CONSITIPATION Lidocaine HCl (Xylocaine 1% Inj) 0.1 ml I-DERMAL PRN PRN PRN Reason: For IV start Stop: 11/12/17 08:04 Lidocaine HCl (Xylocaine 1% Inj) 10 ml INFILTRATN PRN PRN PRN Reason: For episiotomy repair Stop: 11/11/17 08:04 Mineral Oil (Muri-Lube Oil) 10 ml TOPICAL PRN PRN PRN Reason: PRN perineal massage Naloxone HCl (Narcan Inj) 0.1 mg IV.PUSH Q2M PRN PRN Reason: for opiate reversal Naloxone HCl (Narcan Inj) 0.1 mg IV.PUSH Q2M PRN PRN Reason: for opiate reversal Ondansetron HCl (Zofran Inj) 4 mg IV.PUSH Q6H PRN PRN Reason: NAUSEA OR VOMITING Ondansetron HCl (Zofran Odt) 4 mg PO Q6H PRN PRN Reason: NAUSEA OR VOMITING Vit/Calcium/Iron/Folic Ac (Stuartnatal Plus 3) 1 tab PO DAILY [facility] Last Admin: 11/10/17 07:59 Dose: 1 tab Senna/Docusate Sodium (Kierra-Colace) 1 tab PO BID [facility] Last Admin: 11/10/17 23:19 Dose: 1 tab Sennosides (Senokot) 17.2 mg PO Q12H PRN PRN Reason: Moderate Constipation Sodium Chloride (Ns Flush) 2 ml IV.FLUSH BID [facility] Last Admin: 11/10/17 21:20 Dose: Not Given Sodium Chloride (Ns Flush) 2 ml IV.FLUSH PRN PRN PRN Reason: FLUSH AFTER USING IV ACCESS Witch Shagufta/Glycerin (Tucks Pads) 1 applicatio RECTAL QID PRN PRN Reason: HEMORRHOIDS Last Admin: 11/10/17 01:25 Dose: 1 applicatio Zolpidem Tartrate (Ambien) 5 mg PO HS PRN PRN Reason: SLEEP Last Admin: 11/10/17 01:25 Dose: 5 mg Assessment and Plan - Plan Patient is a 22-year-old delivered at 39 weeks and 4 days. Patient is day 2 after vaginal delivery. Continue routine care. Motrin and Percocet when necessary for pain. Encourage OOB. Pelvic rest for 6 weeks will need follow-up appointment at that time. Contraception: Patient will discuss with OB provider at 6 weeks follow-up. Anticipate discharge today. briseida OB hospitalist
[2017-11-11] MEDS: Senna/Docusate Sodium 8.6/50 MG Tablet PO SCH (10:00)
[2017-11-11] MEDS ORDERED: Diphtheria/Tetanus/Pertussis Vaccine Inj 0.5 ML Syringe IM ONE (10:00)
== END 2017-11-11 11:18 | disposition home or self-care (01) ==
LOC: HOBED 07:48 → H2E 08:10 → H1EA 18:13
PROVIDERS: ADMIT Obstetrics & Gynecology Maternal & Fetal Medicine; ATTEND Obstetrics & Gynecology Maternal & Fetal Medicine